=== PATIENT | male | born 1955 | race Caucasian/White ===

== ENCOUNTER 2022-05-29 14:01 | Inpatient (IN) | payer BC ==
[2022-05-29] MEDS ORDERED: Ondansetron 4 MG/2 ML SDV IVPUSH ONE (15:17)
[2022-05-29] MEDS ORDERED: HYDROmorphone 1 MG/ML Syringe IVPUSH ONE ×2 (15:17→16:20)
[2022-05-29] MEDS ORDERED: Iopamidol 612 MG/ML 100 ML Bottle IVPUSH ONE (15:26)
[2022-05-29] MEDS ORDERED: Iopamidol 612 MG/ML 50 ML SDV IVPUSH ONE (15:26)
[2022-05-29] MEDS: Sodium Chloride 0.9% 1,000 ML IV SCH ×2 (15:36→22:12)
[2022-05-29] MEDS: Sodium Chloride 0.9% 10 ML Syringe FLUSH PRN ×2 (15:36→16:08)
[2022-05-29] MEDS ORDERED: Ondansetron 4 MG Tab.DIS PO PRN (20:26)
[2022-05-29] MEDS ORDERED: HYDROmorphone 0.5 MG/0.5 ML Syringe IVPUSH PRN (20:26)
[2022-05-29] MEDS: Ibuprofen 600 MG Tab PO SCH (21:36)
[2022-05-29] MEDS: Acetaminophen 325 MG Tab PO SCH ×2 (21:37→23:53)
[2022-05-29] MEDS: Heparin Sodium 5,000 Units/ML Vial SUBCUT SCH (21:42)
[2022-05-30] MEDS: Ibuprofen 600 MG Tab PO SCH ×4 (02:51→20:58)
[2022-05-30] MEDS: Sodium Chloride 0.9% 1,000 ML IV SCH ×3 (04:54→18:30)
[2022-05-30] MEDS: Acetaminophen 325 MG Tab PO SCH ×5 (04:58→20:58)
[2022-05-30] MEDS: oxyCODONE 5 MG Tab PO PRN ×3 (04:58→23:13)
[2022-05-30] MEDS: Heparin Sodium 5,000 Units/ML Vial SUBCUT SCH ×3 (05:00→20:58)
[2022-05-30] MEDS: Tamsulosin 0.4 MG Cap.ER PO SCH (09:14)
[2022-05-30] MEDS: Lisinopril 10 MG Tab PO SCH (09:15)
[2022-05-30] MEDS: Nicotine 14 MG/24 Hr Patch TRDERM SCH (09:24)
[2022-05-31] MEDS: Heparin Sodium 5,000 Units/ML Vial SUBCUT SCH ×2 (00:11→05:40)
[2022-05-31] MEDS: Acetaminophen 325 MG Tab PO SCH ×4 (00:19→11:54)
[2022-05-31] MEDS: Sodium Chloride 0.9% 1,000 ML IV SCH ×2 (00:20→07:06)
[2022-05-31] MEDS: Ibuprofen 600 MG Tab PO SCH ×2 (02:39→09:11)
[2022-05-31] MEDS: oxyCODONE 5 MG Tab PO PRN (05:38)
[2022-05-31] MEDS ORDERED: Lidocaine 4% 1 each Patch TOP SCH (09:00)
[2022-05-31] MEDS: Tamsulosin 0.4 MG Cap.ER PO SCH (09:12)
[2022-05-31] MEDS: Lisinopril 10 MG Tab PO SCH (09:12)
[2022-05-31] MEDS: Nicotine 14 MG/24 Hr Patch TRDERM SCH (09:13)
== END 2022-05-31 13:40 | disposition home or self-care (01) | DRG 135 ==
LOC: SUPCPDRO 14:01 → JD.ED 14:01 → UNDOADMIN 20:35 → JD.MS 20:35
PROVIDERS: ADMIT Surgery; ATTEND Surgery
DX: S27.0XXA Traumatic pneumothorax, initial encounter (principal); S22.43XA Multiple fractures of ribs, bilateral, initial encounter for closed fracture; S27.322A Contusion of lung, bilateral, initial encounter; I10 Essential (primary) hypertension; E78.00 Pure hypercholesterolemia, unspecified; N40.0 Benign prostatic hyperplasia without lower urinary tract symptoms; F17.210 Nicotine dependence, cigarettes, uncomplicated; Z20.822 Contact with and (suspected) exposure to COVID-19; Z98.890 Other specified postprocedural states; V80.010A Animal-rider injured by fall from or being thrown from horse in noncollision accident, initial encounter; Z79.899 Other long term (current) drug therapy; Z79.1 Long term (current) use of non-steroidal anti-inflammatories (NSAID); Y92.89 Other specified places as the place of occurrence of the external cause
CPT/HCPCS: 36415; 70450; 70450-26; 71045; 71045-26; 71260; 71260-26; 73020-26-LT; 73020-LT; 73070-26-LT; 73070-LT; 74177; 74177-26; 80053; 84484; 85025; 85610; 85730; 93005; 94761; 96361; 96374; 96375; 96376; 99285-25; A9270-GY; J1170; J1644; J2405; J3490; J7030; Q9967; U0002

== ENCOUNTER 2022-07-04 11:17 | Emergency (ER) | payer BC ==
[2022-07-04] MEDS ORDERED: Midazolam 1 MG/ML 2 ML SDV IVPUSH ONE (12:32)
[2022-07-04] MEDS ORDERED: Sodium Chloride 0.9% 10 ML Syringe FLUSH PRN (12:32)
[2022-07-04] MEDS ORDERED: fentaNYL 100 MCG/2 ML SDV IVPUSH ONE (12:33)
== END 2022-07-04 14:40 | disposition home or self-care (01) ==
LOC: JD.ED 11:17
DX: K43.9 Ventral hernia without obstruction or gangrene (principal); E78.00 Pure hypercholesterolemia, unspecified; I10 Essential (primary) hypertension; Z79.899 Other long term (current) drug therapy
CPT/HCPCS: 96374; 96375; 99283; J2250; J3010; J3490